=== PATIENT | female | born 1990 | race African-American/Black ===

== ENCOUNTER 2017-02-11 08:56 | Emergency (ER) | payer MEDICAID | END 2017-02-11 11:03 | disposition home or self-care (01) | LOC: D.ER 08:56 | DX: J20.9 Acute bronchitis, unspecified (principal) ==

== ENCOUNTER 2017-09-03 20:39 | Emergency (ER) | payer MEDICAID ==
[~2017-09-03] VITALS: Ht 167.6 cm; Wt 118.2 kg
[2017-09-03 20:43] VITALS: Ht 167.6 cm; Wt 118.2 kg
[2017-09-03] MEDS ORDERED: DIFLUCAN150 MG PO (21:18)
[2017-09-03 21:40] VITALS: BP 128/74
== END 2017-09-03 21:38 | disposition home or self-care (01) ==
LOC: D.ER 20:39
DX: B37.3 Candidiasis of vulva and vagina (principal)

== ENCOUNTER 2018-12-16 16:37 | Emergency (ER) | payer MEDICAID ==
[~2018-12-16] VITALS: Ht 167.6 cm; Wt 136.4 kg
[~2018-12-16 16:37] MED LIST: DIFLUCAN150 MG PO
[2018-12-16 16:40] VITALS: Ht 167.6 cm; Wt 136.4 kg
[2018-12-16] MEDS ORDERED: NAPROSYN500 MG PO (17:06)
[2018-12-16 17:14] VITALS: BP 130/80
== END 2018-12-16 17:15 | disposition home or self-care (01) ==
LOC: D.ER 16:37
DX: S50.02XA Contusion of left elbow, initial encounter (principal); W19.XXXA Unspecified fall, initial encounter

== ENCOUNTER 2019-10-18 09:15 | Emergency (ER) | payer MEDICAID ==
[~2019-10-18] VITALS: Ht 167.6 cm; Wt 122.7 kg
[~2019-10-18 09:15] MED LIST changes: +AMOXICILLIN500 M1 PO; +AZITHROMYCIN500 MG PO; +NAPROSYN500 MG PO; +ROBITUSSIN DM 110 ML PO
[2019-10-18 09:19] VITALS: Ht 167.6 cm; Wt 122.7 kg
[2019-10-18] MEDS ORDERED: NAPROSYN500 MG PO (10:30)
[2019-10-18 10:48] VITALS: BP 135/84
== END 2019-10-18 10:48 | disposition home or self-care (01) ==
LOC: D.ER 09:15
DX: M54.41 Lumbago with sciatica, right side (principal)